=== PATIENT | male | born 1980 | race Caucasian/White ===

== ENCOUNTER 2016-08-12 15:19 | Emergency (ER) | payer MEDICAID ==
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
[~2016-08-12 15:19] MED LIST: AUGMENTIN875 MG PO; BACTRIM DS TABL1 TA1 PO; BENZONATATE PO; DIFLUCAN PO; FLONASE ALLERG9.9 ML; KEFLEX500 MG PO; PERCOCET5/325 PO
== END 2016-08-12 17:31 | disposition home or self-care (01) ==
LOC: SED 15:19
DX: S80.211A Abrasion, right knee, initial encounter (principal); Z88.0 Allergy status to penicillin; F17.210 Nicotine dependence, cigarettes, uncomplicated; V86.09XA Driver of other special all-terrain or other off-road motor vehicle injured in traffic accident, initial encounter
CPT/HCPCS: 73562; 99283